=== PATIENT | male | born 1950 | race Caucasian/White ===

== ENCOUNTER 2019-12-29 11:26 | Emergency (ER) | payer MEDICARE, OTHER ==
[2019-12-29 11:39] VITALS: O2SAT 97
--- NOTE | 2019-12-29 11:50 | ERPHSYRPT ---
- History of Present Illness Time Seen by Provider: 12/29/19 11:50 Source: patient, family Exam Limitations: no limitations Patient Subjective Stated Complaint: pt here via ambulance for dizziness, states he had a sudden onset, feels like he is off balance,dnies any other cosk, was seen by last week and told to drink more water which he has Triage Nursing Assessment: pt alert, resp easy, skin w/d/p.moves all ext well, mucas membranes moist, eat breakfast this am. Physician History: This is a 69-year-old white male patient with a history of hypertension who presents with intermittent dizziness. This is occurred throughout the past week. Patient went to see Dr. Silverman his primary care physician. There is be en no changes in his medications recently. He denies head injury. Patient denies visual changes and he denies headaches. Patient does not have chest pain he is not short of breath. He has no abdominal pain. Patient took his blood pressure medications this morning approximately 4 hours prior to arrival. He has an elevated systolic blood pressure over 180. Patient's blood sugar on arrival was 68. Timing/Duration: week(s) (During this past week), intermittent Severity: mild Deficits: no difficulties Baseline/Normal Cognition: alert oriented x 3 Current Cognition: alert oriented x 3 Baseline Gait: walks w/o assistance Associated Symptoms: denies symptoms Allergies/Adverse Reactions: tetracycline [Tetracycline] Allergy (Mild, Verified 12/29/19 11:39) oxytetracycline [From Terramycin] Allergy (Verified 12/29/19 11:39) oxytetracycline HCl [From Terramycin] Allergy (Verified 12/29/19 11:39) Home Medications: Gabapentin 400 mg [Neurontin 400 MG] 400 mg PO TID 08/29/14 [History] Nebivolol HCl [Bystolic] 5 mg PO DAILY 08/29/14 [History] Tamsulosin HCl 0.4 mg [Flomax 0.4 MG] 1 tab PO DAILY 08/29/14 [History] Aspirin 81 gm Chew [Baby Aspirin 81 mg Chew] 1 ea DAILY 12/29/19 [History] Hx Tetanus, Diphtheria Vaccination/Date Given: Yes (UNSURE) Hx Influenza Vaccination/Date Given: Yes Hx Pneumococcal Vaccination/Date Given: Yes Immunizations Up to Date: Yes Travel Risk - International Travel Have you traveled outside of the country in past 3 weeks: No - Coronavirus Screening Are you exhibiting any of the following symptoms?: No Close contact with a COVID-19 positive Pt in past 14-21 Days: No - Review of Systems Constitutional: No Symptoms Eyes: No Symptoms Ears, Nose, & Throat: No Symptoms Respiratory: No Symptoms Cardiac: No Symptoms Abdominal/Gastrointestinal: No Symptoms Genitourinary Symptoms: No Symptoms Musculoskeletal: No Symptoms Skin: No Symptoms Neurological: Dizziness Psychological: No Symptoms Endocrine: No Symptoms Hematologic/Lymphatic: No Symptoms Immunological/Allergic: No Symptoms All Other Systems: Reviewed and Negative - Past Medical History Pertinent Past Medical History: Yes Neurological History: No Pertinent History ENT History: No Pertinent History Cardiac History: Hypertension, Other Respiratory History: No Pertinent History Endocrine Medical History: No Pertinent History Musculoskeletal History: Arthritis GI Medical History: Hernia History: No Pertinent History Psycho-Social History: No Pertinent History Male Reproductive Disorders: Prostate Problems Other Medical History: nerve pain to shoulder, - Past Surgical History Past Surgical History: Yes Neuro Surgical History: No Pertinent History Cardiac: No Pertinent History Respiratory: No Pertinent History Gastrointestinal: Appendectomy, Hernia Repair Genitourinary: No Pertinent History Musculoskeletal: Orthopedic Surgery Other Surgical History: BACK,NECK - Social History Smoking Status: Never smoker Exposure to second hand smoke: No Drug Use: none Patient Lives Alone: No - Nursing Vital Signs Nursing Vital Signs: Initial Vital Signs Temperature 98.0 F 12/29/19 11:31 Pulse Rate 61 12/29/19 11:31 Respiratory Rate 16 12/29/19 11:31 Blood Pressure 184/93 12/29/19 11:31 O2 Sat by Pulse Oximetry 97 12/29/19 11:31 Pain Scale Pain Intensity 0 - [place] Coma Scale Best Eye Response ([place]): (4) open spontaneously Best Verbal Response ([place]): (5) oriented Best Motor Response ([place]): (6) obeys commands [place] Total: 15 - Physical Exam General Appearance: no apparent distress, alert, anxiety Eye Exam: bilateral eye: normal inspection, PERRL, EOMI Ears, Nose, Throat Exam: normal ENT inspection, moist mucous membranes Neck Exam: normal inspection, non-tender, supple, full range of motion Respiratory: normal breath sounds, lungs clear, airway intact, No chest t enderness, No respiratory distress Cardiovascular: regular rate/rhythm, normal heart sounds, normal peripheral pulses Gastrointestinal: soft, normal bowel sounds, No tenderness Rectal Exam: not done Back Exam: normal inspection, normal range of motion, No CVA tenderness, No vertebral tenderness Extremity Exam: normal inspection, normal range of motion, pelvis stable Mental Status: alert, oriented x 3, 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 Exam: normal hearing, normal speech, PERRL Coordination/Gait: normal finger to nose, normal gait, normal cerebellar function Motor/Sensory: no motor deficit, no sensory deficit, no pronator drift Skin Exam: normal color, warm, dry SpO2 Interpretation: normal SpO2: 97 O2 Delivery: Room Air - Course Nursing assessment & vital signs reviewed: Yes EKG Interpreted by Me: RATE (59), Sinus Rhythm, Left [place] Deviation, NORMAL INTERVALS, NORMAL QRS, Non-specific ST Changes, Other (There is prolonged OR interval and probable left atrial enlargement both of these were present on the prior EKG in December 2017. There is new finding of nonspecific T abnormalities in the inferior leads on the current EKG. There are no acute ischemic changes on today's EKG.) Ordered Tests: Active Orders 24 hr Category Date Time Status EKG-ER Only STAT Care 12/29/19 11:51 Active IV Insertion STAT Care 12/29/19 11:51 Active HEAD WITHOUT CONTRAST [CT] Stat Exams 12/29/19 12:13 Taken CBC W DIFF Stat Lab 12/29/19 11:51 Completed CMP Stat Lab 12/29/19 11:30 Completed MAGNESIUM Stat Lab 12/29/19 11:30 Completed TROPONIN Q3H Lab 12/29/19 11:30 Completed TROPONIN Q3H Lab 12/29/19 15:15 Ordered TROPONIN Q3H Lab 12/29/19 18:15 Ordered TROPONIN Q3H Lab 12/29/19 21:15 Ordered UA W/RFX UR CULTURE Stat Lab 12/29/19 11:30 Completed Medication Summary Discontinued Medications Generic Name Dose Route Start Last Admin Trade Name Freq PRN Reason Stop Dose Admin Enalaprilat 1.25 mg 12/29/19 12:09 12/29/19 12:12 Vasotec I.V. 2.5 Mg IV 12/29/19 12:10 1.25 mg STAT ONE Administration Enalaprilat Confirm 12/29/19 12:11 Vasotec I.V. 2.5 Mg Administered 12/29/19 12:12 Dose 2.5 mg IV .STK-MED ONE Sodium Chloride 1,000 mls @ 999 mls/hr 12/29/19 11:51 12/29/19 13:17 Sodium Chloride 0.9% 1000 Ml IV 12/29/19 12:51 Infused .Q1H1M STA Infusion Sodium Chloride Confirm 12/29/19 12:02 Sodium Chloride 0.9% 1000 Ml Administered 12/29/19 12:03 Dose 1,000 mls @ ud .ROUTE .STK-MED ONE Metoprolol Tartrate 5 mg 12/29/19 11:53 12/29/19 12:07 Lopressor 5 Mg/5 Ml Injection IV 12/29/19 11:54 Not Given STAT ONE Metoprolol Tartrate Confirm 12/29/19 12:02 Lopressor 5 Mg/5 Ml Injection Administered 12/29/19 12:03 Dose 5 mg IV .STK-MED ONE Lab/Rad Data: Laboratory Result Diagrams 12/29/19 11:51 12/29/19 11:30 Laboratory Results 12/29/19 12/29/19 12/29/19 Range/Units 11:51 11:30 11:30 WBC 6.5 (4.0-10.5) K/mm3 RBC 4.27 (4.1-5.6) M/mm3 Hgb 15.5 (12.5-18.0) gm/dl Hct 44.3 (42-50) % MCV 103.7 H (78-100) fl MCH 36.3 H (26-32) pg MCHC 35.0 (32-36) g/dl RDW 12.9 (11.5-14.0) % Plt Count 120 L (150-450) K/mm3 MPV 10.5 (7.5-11.0) fl Gran % 55.2 (36.0-66.0) % Eos # (Auto) 0.31 (0-0.5) Absolute Lymphs (auto) 1.18 (1.0-4.6) Absolute Monos (auto) 1.36 H (0.0-1.3) Lymphocytes % 18.3 L (24.0-44.0) % Monocytes % 21.1 H (0.0-12.0) % Eosinophils % 4.8 (0.00-5.0) % Basophils % 0.6 (0.0-0.4) % Absolute Granulocytes 3.56 (1.4-6.9) Basophils # 0.04 (0-0.4) Sodium 132 L (137-145) mmol/L Potassium 3.5 (3.5-5.1) mmol/L Chloride 100 (98-107) mmol/L Carbon Dioxide 27 (22-30) mmol/L Anion Gap 9.6 (5-15) MEQ/L BUN 8 L (9-20) mg/dL Creatinine 0.58 L (0.66-1.25) mg/dL Estimated GFR > 60.0 ML/MIN Glucose 64 L (74-106) mg/dL Calcium 9.3 (8.4-10.2) mg/dL Magnesium 1.9 (1.6-2.3) mg/dL Total Bilirubin 3.40 H (0.2-1.3) mg/dL AST 61 H (17-59) U/L ALT 30 (0-50) U/L Alkaline Phosphatase 92 (38-126) U/L Troponin I < 0.012 (0.000-0.034) ng/mL Serum Total Protein 7.1 (6.3-8.2) g/dL Albumin 3.6 (3.5-5.0) g/dL Urine Color (YELLOW) Urine Appearance (CLEAR) Urine pH (5-6) Ur Specific [place] (1.005-1.025) Urine Protein (Negative) Urine Ketones (NEGATIVE) Urine Blood (0-5) Terrance/ul Urine Nitrite (NEGATIVE) Urine Bilirubin (NEGATIVE) Urine Urobilinogen (0-1) mg/dL Ur Leukocyte Esterase (NEGATIVE) Urine WBC (Auto) (0-5) /HPF Urine RBC (Auto) (0-2) /HPF U Epithel Cells (Auto) (FEW) /HPF Urine Bacteria (Auto) (NEGATIVE) /HPF Urine Mucus (Auto) (NEGATIVE) /HPF Urine Culture Reflexed (NO) Urine Glucose (NEGATIVE) mg/dL 12/29/19 Range/Units 11:30 WBC (4.0-10.5) K/mm3 RBC (4.1-5.6) M/mm3 Hgb (12.5-18.0) gm/dl Hct (42-50) % MCV (78-100) fl MCH (26-32) pg MCHC (32-36) g/dl RDW (11.5-14.0) % Plt Count (150-450) K/mm3 MPV (7.5-11.0) fl Gran % (36.0-66.0) % Eos # (Auto) (0-0.5) Absolute Lymphs (auto) (1.0-4.6) Absolute Monos (auto) (0.0-1.3) Lymphocytes % (24.0-44.0) % Monocytes % (0.0-12.0) % Eosinophils % (0.00-5.0) % Basophils % (0.0-0.4) % Absolute Granulocytes (1.4-6.9) Basophils # (0-0.4) Sodium (137-145) mmol/L Potassium (3.5-5.1) mmol/L Chloride (98-107) mmol/L Carbon Dioxide (22-30) mmol/L Anion Gap (5-15) MEQ/L BUN (9-20) mg/dL Creatinine (0.66-1.25) mg/dL Estimated GFR ML/MIN Glucose (74-106) mg/dL Calcium (8.4-10.2) mg/dL Magnesium (1.6-2.3) mg/dL Total Bilirubin (0.2-1.3) mg/dL AST (17-59) U/L ALT (0-50) U/L Alkaline Phosphatase (38-126) U/L Troponin I (0.000-0.034) ng/mL Serum Total Protein (6.3-8.2) g/dL Albumin (3.5-5.0) g/dL Urine Color YELLOW (YELLOW) Urine Appearance CLEAR (CLEAR) Urine pH 6.0 (5-6) Ur Specific [place] 1.013 (1.005-1.025) Urine Protein NEGATIVE (Negative) Urine Ketones NEGATIVE (NEGATIVE) Urine Blood NEGATIVE (0-5) Terrance/ul Urine Nitrite NEGATIVE (NEGATIVE) Urine Bilirubin NEGATIVE (NEGATIVE) Urine Urobilinogen 2 (0-1) mg/dL Ur Leukocyte Esterase NEGATIVE (NEGATIVE) Urine WBC (Auto) NONE (0-5) /HPF Urine RBC (Auto) NONE (0-2) /HPF U Epithel Cells (Auto) NONE (FEW) /HPF Urine Bacteria (Auto) NONE (NEGATIVE) /HPF Urine Mucus (Auto) SLIGHT (NEGATIVE) /HPF Urine Culture Reflexed NO (NO) Urine Glucose 50 (NEGATIVE) mg/dL - Progress Progress: improved, re-examined Progress Note: 12/29/19 12:44 CAT scan of the head reveals no acute intracranial abnormality. 12/29/19 13:19 Medical decision making: This patient presented with dizziness. His blood pressure was elevated. He has a normal CAT scan his blood pressure is now in a reasonable range. Patient states he has no symptoms of dizziness at all at this time. He does not want to be admitted or transferred. We will place him on a Holter monitor and discharge him to home with instructions to continue his medi cation as prescribed. He is also to follow-up with his primary care physician. Counseled pt/family regarding: lab results, diagnosis, need for follow-up, rad results - Departure Departure Disposition: Home Clinical Impression: Dizziness, Hypertensive urgency Condition: Stable Critical Care Time: Yes Critical Care Time(excluding separately billable procedures): Critical 30-74 mins Referrals: MARCELO SILVERMAN MD [Primary Care Provider] - Additional Instructions: Take your medication as prescribed. Follow-up with your primary care physician tomorrow morning by phone to schedule a follow-up appointment. Return the Holter monitor unit as instructed.
[2019-12-29] MEDS ORDERED: Sodium Chloride 0.9% 1000 ML 1,000 ML IV STA (11:51)
[2019-12-29] MEDS ORDERED: Sodium Chloride 0.9% 1000 ML 1,000 ML ONE (12:02)
[2019-12-29] MEDS ORDERED: LOPRESSOR 5 MG/5 ML INJECTION IV ONE (12:02)
[2019-12-29] MEDS: LOPRESSOR 5 MG/5 ML INJECTION IV ONE ×2 (12:05→12:07)
[2019-12-29] MEDS ORDERED: VASOTEC I.V. 2.5 MG IV ONE ×3 (12:09→13:43)
[2019-12-29 12:36] LABS: Absolute Neutrophil Ct (ANC) 3.56 (1.4-6.9); BASOPHIL % 0.6 % (0.0-0.4); Basophil (Absolute #) 0.04 (0-0.4); Eosinophil % 4.8 % (0.00-5.0); Eosinophil (Absolute #) 0.31 (0-0.5); Hematocrit 44.3 % (42-50); Hemoglobin 15.5 gm/dl (12.5-18.0); Lymphocyte (Absolute #) 1.18 (1.0-4.6); Lymphocytes % 18.3 % (24.0-44.0); Mean Cell Volume 103.7 fl (78-100); Mean Corpuscular Hemoglobin 36.3 pg (26-32); Mean Platelet Volume 10.5 fl (7.5-11.0); Monocyte (Absolute #) 1.36 (0.0-1.3); Monocytes % 21.1 % (0.0-12.0); Neutrophil % 55.2 % (36.0-66.0); Platelet Count 120 K/mm3 (150-450); Red Blood Count 4.27 M/mm3 (4.1-5.6); Red Cell Distribution Width 12.9 % (11.5-14.0); White Blood Count 6.5 K/mm3 (4.0-10.5)
[2019-12-29 12:40] LABS: Appearance CLEAR (CLEAR); Bilirubin NEGATIVE (NEGATIVE); Blood NEGATIVE Ery/ul (0-5); Glucose 50 mg/dL (NEGATIVE); Ketones NEGATIVE (NEGATIVE); Leukocyte Esterase NEGATIVE (NEGATIVE); Mucus SLIGHT /HPF (NEGATIVE); Nitrite NEGATIVE (NEGATIVE); Protein,Urine Dip NEGATIVE (Negative); Specific Gravity 1.013 (1.005-1.025); Urobilinogen 2 mg/dL (0-1)
[2019-12-29 13:01] LABS: ALBUMIN 3.6 g/dL (3.5-5.0); ALKALINE PHOSPHATASE 92 U/L (38-126); ANION GAP 9.6 MEQ/L (5-15); BLOOD UREA NITROGEN 8 mg/dL (9-20); CHLORIDE 100 mmol/L (98-107); Calcium 9.3 mg/dL (8.4-10.2); Carbon Dioxide 27 mmol/L (22-30); Creatinine 1 0.58 mg/dL (0.66-1.25); Glucose 64 mg/dL (74-106); MAGNESIUM 1.9 mg/dL (1.6-2.3); Potassium 3.5 mmol/L (3.5-5.1); SGOT/AST 61 U/L (17-59); SGPT/ALT 30 U/L (0-50); SODIUM 132 mmol/L (137-145); Total Protein 7.1 g/dL (6.3-8.2)
[2019-12-29] MEDS: VASOTEC I.V. 2.5 MG IV ONE ×2 (13:47→13:51)
[2019-12-29 13:51] VITALS: BP 154/86
[2019-12-29 13:55] VITALS: PULSE 70
--- NOTE | 2019-12-29 20:02 | XRAY ---
Indication: Dizziness. High blood pressure. Multiple contiguous axial images obtained through the head without contrast. Comparison: September 23, 2014. Again normal appearing brain parenchyma, ventricles, and bony calvarium for patient's age. Visualized paranasal sinuses and mastoid air cells are clear. Impression: Continued normal CT head without contrast exam. Comment: Preliminary interpretation was made by [facility]. No critical discrepancy.
--- NOTE | 2020-01-01 11:43 | HOLTER ---
DATE OF PROCEDURE: 12/29/2019 PROCEDURE: Holter monitor report. REASON FOR EXAMINATION: Dizziness. DESCRIPTION OF PROCEDURE: The patient was monitored using Holter monitor for about 24 hours. The patient was in sinus rhythm throughout the recording with average rate of 64 beats/minute. The maximum rate was 88 beats/minute at 0909 hours and the minimum rate was 52 beats/minute at 0534 hours. There were occasional premature ventricular ectopies noted. No evidence of any ventricular tachyarrhythmia. There were premature atrial ectopies with two episodes of short atrial runs consisting of 4 beats. No evidence of any long pauses or no blocks noted. IMPRESSION: 1) SINUS RHYTHM WITH SUGGESTION OF CHRONOTROPIC INCOMPETENCE. 2) OCCASIONAL PVC'S. 3) OCCASIONAL PAC'S WITH TWO EPISODES OF SHORT ATRIAL RUNS OF 4 BEATS.
== END 2019-12-29 14:10 | disposition home or self-care (01) ==
LOC: ED 11:26
DX: R42 Dizziness and giddiness (principal); I16.0 Hypertensive urgency; Z79.899 Other long term (current) drug therapy
CPT/HCPCS: 36000; 36415; 70450; 80053; 81001; 82962; 83735; 84484; 85025; 93005; 93225; 96360; 96374; 99285; 99291

== ENCOUNTER 2021-01-27 20:10 | Emergency (ER) | payer MEDICARE, OTHER ==
[2021-01-27 20:49] LABS: Absolute Neutrophil Ct (ANC) 2.44 (1.4-6.9); BASOPHIL % 0.5 % (0.0-0.4); Basophil (Absolute #) 0.03 (0-0.4); Eosinophil % 11.6 % (0.00-5.0); Eosinophil (Absolute #) 0.71 (0-0.5); Hematocrit 37.2 % (42-50); Hemoglobin 12.9 gm/dl (12.5-18.0); Lymphocyte (Absolute #) 1.77 (1.0-4.6); Mean Cell Volume 103.6 fl (78-100); Mean Corpuscular Hemoglobin 35.9 pg (26-32); Mean Corpuscular Hgb Concent. 34.7 g/dl (32-36); Mean Platelet Volume 9.9 fl (7.5-11.0); Monocyte (Absolute #) 1.15 (0.0-1.3); Monocytes % 18.9 % (0.0-12.0); Platelet Count 117 K/mm3 (150-450); Red Blood Count 3.59 M/mm3 (4.1-5.6); Red Cell Distribution Width 12.7 % (11.5-14.0); White Blood Count 6.1 K/mm3 (4.0-10.5)
--- NOTE | 2021-01-27 21:10 | ERPHSYRPT ---
- History of Present Illness Time Seen by Provider: 01/27/21 20:15 Historian: patient Exam Limitations: no limitations Patient Subjective Stated Complaint: pt c/o dizziness Triage Nursing Assessment: pt c/o dizziness around 1900 today. Pt states, "I drank 6 beers today with friends but that has nothing to do with this". Pt has a slight headache and got a little nauseaous on his way over to the hospital in the car. Pt denies any pain or nausea at this time. Physician History: Patient is a 70-year-old male presents to emergency department for evaluation of dizziness. Dizziness started approximately 7 PM. Dizziness is associated with a mild headache and nausea. Patient states he took a 0.4 mg nitroglycerin sub lingual at 930 due to his symptoms. Upon his arrival to our ED patient experienced a mild headache and nausea. Upon arrival to our ED nausea resolved. Patient states that he was drinking beers with his friends prior to the onset of the symptoms. No active chest pain. No diaphoresis. No trauma. No fever. Symptoms are mild in intensity. No specific worsening improving factors. Patient voices no other complaints concerns at this time. Timing/Duration: today Activities at Onset: other (Patient had been drinking beers with his friend brigette r to onset of symptoms.) Severity of Pain-Max: moderate Severity of Pain-Current: mild Modifying Factors: Improves With: nothing Associated Symptoms: nausea, No vomiting, No shortness of breath Prior Chest Pain/Cardiac Workup: no prior chest pain Nitro Today/Relief: 0.4 mg x 1 Aspirin Treatment Today: no aspirin today Allergies/Adverse Reactions: oxytetracycline [From Terramycin] Allergy (Mild, Verified 01/27/21 20:24) Rash oxytetracycline HCl [From Terramycin] Allergy (Mild, Verified 01/27/21 20:24) Rash tetracycline [Tetracycline] Allergy (Mild, Verified 01/27/21 20:24) Rash Home Medications: Gabapentin 400 mg [Neurontin 400 MG] 400 mg PO TID 08/29/14 [History] Tamsulosin HCl 0.4 mg [Flomax 0.4 MG] 1 tab PO DAILY 08/29/14 [History] Aspirin 81 gm Chew [Baby Aspirin 81 mg Chew] 1 ea PO DAILY 06/28/20 [History] Carvedilol [Coreg] 6.25 mg PO BID 01/27/21 [History] Sildenafil Citrate 100 mg PO DAILY PRN PRN 01/27/21 [History] Solifenacin Succinate [Vesicare] 5 mg PO DAILY 01/27/21 [History] Spironolactone 25 mg PO DAILY 01/27/21 [History] Torsemide 20 mg [Demadex 20 mg] 20 mg PO DAILY 01/27/21 [History] Hx Tetanus, Diphtheria Vaccination/Date Given: Yes Hx Influenza Vaccination/Date Given: Yes Hx Pneumococcal Vaccination/Date Given: Yes Immunizations Up to Date: Yes Travel Risk - International Travel Have you traveled outside of the country in past 3 weeks: No - Coronavirus Screening Are you exhibiting any of the following symptoms?: No Close contact with a COVID-19 positive Pt in past 14-21 Days: No - Vaccine Status Have you recieved a Covid-19 vaccination: Yes [employer] - Vaccination Dates Date of 2cond Vaccination (if applicable): 09/09/20 - Past Medical History Pertinent Past Medical History: Yes Neurological History: No Pertinent History ENT History: No Pertinent History Cardiac History: Angina, Hypertension, Other Respiratory History: No Pertinent History Endocrine Medical History: No Pertinent History Musculoskeletal History: Arthritis GI Medical History: GERD, Hernia History: No Pertinent History Psycho-Social History: No Pertinent History Male Reproductive Disorders: Prostate Problems Other Medical History: nerve pain to shoulder - Past Surgical History Past Surgical History: Yes Neuro Surgical History: No Pertinent History Cardiac: No Pertinent History Respiratory: No Pertinent History Gastrointestinal: Appendectomy, Hernia Repair Genitourinary: No Pertinent History Musculoskeletal: Orthopedic Surgery Male Surgical History: No Pertinent History Other Surgical History: BACK,NECK - Social History Smoking Status: Never smoker Exposure to second hand smoke: Yes Drug Use: none Patient Lives Alone: No - Nursing Vital Signs Nursing Vital Signs: Initial Vital Signs Temperature 97.1 F 01/27/21 20:12 Pulse Rate 60 01/27/21 20:12 Respiratory Rate 20 01/27/21 20:12 Blood Pressure 120/70 01/27/21 20:12 O2 Sat by Pulse Oximetry 100 01/27/21 20:12 Pain Scale Pain Intensity 0 - Physical Exam General Appearance: no apparent distress, alert, other (Patient smells of alcohol ) Eye Exam: PERRL/EOMI, eyes nml inspection Ears, Nose, Throat Exam: normal ENT inspection, moist mucous membranes Neck Exam: normal inspection, non-tender, supple, full range of motion Respiratory Exam: normal breath sounds, lungs clear, No respiratory distress Cardiovascular Exam: regular rate/rhythm, normal heart sounds Gastrointestinal/Abdomen Exam: soft, No tenderness, No mass Back Exam: normal inspection, No CVA tenderness, No vertebral tenderness Extremity Exam: normal inspection, normal range of motion, other (1+ pitting edema bilateral lower extremity.) Neurologic Exam: alert, oriented x 3, cooperative, normal mood/affect, sensation nml, No motor deficits, No sensory deficit, No disoriented, No confusion, No agitation, No uncooperative, No facial droop, No slurred speech, No aphasia, No dysarthria, No abnormal gait, No abnormal cerebellar tests Skin Exam: normal color, warm, dry SpO2 Interpretation: normal SpO2: 98 O2 Delivery: Room Air - Course Nursing assessment & vital signs reviewed: Yes EKG Interpreted by Me: RATE (60), Sinus Rhythm, NORMAL AXIS, prolonged QT interval - Radiology Exams Chest X-ray Interpretation: Teleradiologist Report (Bilateral apical scarring. Patchy groundglass pulmonary opacities. Bibasilar atelectasis. No pleural effusion cardiomegaly enlarged pulmonary arteries likely represents chronic pulmonary arterial hypertension. Vascular calcifications.) - CT Exams Head CT Interpretation: Tele-radiologist Report (Mild chronic brain volume loss and chronic small vessel ischemic changes. No ventriculomegaly. Mild mucosal thickening in the paranasal sinuses. Visualized mastoid air cells are well aerated. No acute intracranial findings.) Ordered Tests: Active Orders 24 hr Category Date Time Status Tax Accounting Assistant STAT Care 01/27/21 20:30 Active EKG-ER Only STAT Care 01/27/21 20:29 Active IV Insertion STAT Care 01/27/21 20:29 Active Pulse Oximetry (ED) STAT Care 01/27/21 20:29 Active CHEST 1 VIEW (PORTABLE) Stat Exams 01/27/21 20:30 Taken HEAD WITHOUT CONTRAST [CT] Stat Exams 01/28/21 00:17 Taken CBC W DIFF Stat Lab 01/27/21 20:45 Completed CMP Stat Lab 01/27/21 20:45 Completed ETHYL ALCOHOL Stat Lab 01/28/21 00:01 Completed NT PRO BNP Stat Lab 01/27/21 20:45 Completed TROPONIN Q3H Lab 01/27/21 20:45 Completed TROPONIN Q3H Lab 01/27/21 23:37 Completed TROPONIN Q3H Lab 01/28/21 02:30 Ordered TROPONIN Q3H Lab 01/28/21 05:30 Ordered TROPONIN Q3H Lab 01/28/21 08:30 Ordered Medication Summary Generic Name Dose Route Start Last Admin Trade Name Freq PRN Reason Stop Dose Admin Sodium Chloride 1,000 mls @ 999 mls/hr 01/28/21 01:39 01/28/21 01:43 Sodium Chloride 0.9% 1000 Ml IV 01/28/21 02:39 999 mls/hr .Q1H1M STA Administration Discontinued Medications Generic Name Dose Route Start Last Admin Trade Name Freq PRN Reason Stop Dose Admin Sodium Chloride Confirm 01/28/21 01:41 Sodium Chloride 0.9% 1000 Ml Administered 01/28/21 01:42 Dose 1,000 mls @ ud .ROUTE .STK-MED ONE Lab/Rad Data: Laboratory Result Diagrams 01/27/21 20:45 01/27/21 20:45 Laboratory Results 01/28/21 01/27/21 01/27/21 Range/Units 00:01 23:37 20:45 WBC (4.0-10.5) K/mm3 RBC (4.1-5.6) M/mm3 Hgb (12.5-18.0) gm/dl Hct (42-50) % MCV (78-100) fl MCH (26-32) pg MCHC (32-36) g/dl RDW (11.5-14.0) % Plt Count (150-450) K/mm3 MPV (7.5-11.0) fl Gran % (36.0-66.0) % Eos # (Auto) (0-0.5) Absolute Lymphs (auto) (1.0-4.6) Absolute Monos (auto) (0.0-1.3) Lymphocytes % (24.0-44.0) % Monocytes % (0.0-12.0) % Eosinophils % (0.00-5.0) % Basophils % (0.0-0.4) % Absolute Granulocytes (1.4-6.9) Basophils # (0-0.4) Sodium (137-145) mmol/L Potassium (3.5-5.1) mmol/L Chloride (98-107) mmol/L Carbon Dioxide (22-30) mmol/L Anion Gap (5-15) MEQ/L BUN (9-20) mg/dL Creatinine (0.66-1.25) mg/dL Estimated GFR ML/MIN Glucose (74-106) mg/dL Calcium (8.4-10.2) mg/dL Total Bilirubin (0.2-1.3) mg/dL AST (17-59) U/L ALT (0-50) U/L Alkaline Phosphatase (38-126) U/L Troponin I < 0.012 < 0.012 (0.000-0.034) ng/mL NT-Pro-B Natriuret Pep (0-900) pg/mL Serum Total Protein (6.3-8.2) g/dL Albumin (3.5-5.0) g/dL Ethyl Alcohol 85 H (0-10) mg/dL 01/27/21 01/27/21 Range/Units 20:45 20:45 WBC 6.1 (4.0-10.5) K/mm3 RBC 3.59 L (4.1-5.6) M/mm3 Hgb 12.9 (12.5-18.0) gm/dl Hct 37.2 L (42-50) % MCV 103.6 H (78-100) fl MCH 35.9 H (26-32) pg MCHC 34.7 (32-36) g/dl RDW 12.7 (11.5-14.0) % Plt Count 117 L (150-450) K/mm3 MPV 9.9 (7.5-11.0) fl Gran % 40.0 (36.0-66.0) % Eos # (Auto) 0.71 H (0-0.5) Absolute Lymphs (auto) 1.77 (1.0-4.6) Absolute Monos (auto) 1.15 (0.0-1.3) Lymphocytes % 29.0 (24.0-44.0) % Monocytes % 18.9 H (0.0-12.0) % Eosinophils % 11.6 H (0.00-5.0) % Basophils % 0.5 (0.0-0.4) % Absolute Granulocytes 2.44 (1.4-6.9) Basophils # 0.03 (0-0.4) Sodium 129 L (137-145) mmol/L Potassium 3.5 (3.5-5.1) mmol/L Chloride 94 L (98-107) mmol/L Carbon Dioxide 23 (22-30) mmol/L Anion Gap 14.9 (5-15) MEQ/L BUN 9 (9-20) mg/dL Creatinine 0.89 (0.66-1.25) mg/dL Estimated GFR > 60.0 ML/MIN Glucose 123 H (74-106) mg/dL Calcium 8.7 (8.4-10.2) mg/dL Total Bilirubin 3.10 H (0.2-1.3) mg/dL AST 56 (17-59) U/L ALT 24 (0-50) U/L Alkaline Phosphatase 63 (38-126) U/L Troponin I (0.000-0.034) ng/mL NT-Pro-B Natriuret Pep 105 (0-900) pg/mL Serum Total Protein 6.5 (6.3-8.2) g/dL Albumin 3.3 L (3.5-5.0) g/dL Ethyl Alcohol (0-10) mg/dL - Progress Progress: improved Air Movement: good Progress Note: Patient reassessed. Dizziness resolved. Repeat neuro exam within normal limits. Laboratory work-up reveals a hyponatremia. Patient will receive a liter of IV fluids. Troponin negative x2. Alcohol level 85. CT head negative for acute intracranial pathology. Patient has a history of thoracic aortic aneurysm. Chest x-ray does not show any enlargement of the aneurysm. However there are findings concerning for possible atypical pneumonia. Patient will be tested for COVID-19. Case discussed with Dr. Barron who feels that patient is appropriate for discharge. Patient symptomology likely due to alcohol intoxication. 01/28/21 01:42 01/28/21 01:55 Blood Culture(s) Obtained: No Antibiotics given: No Discussed with : Noelle Will see patient in: office Counseled pt/family regarding: lab results, diagnosis, need for follow-up, rad results - Departure Departure Disposition: Home Clinical Impression: Dizziness, Cardiomegaly, Chronic pulmonary hypertension Condition: Stable Critical Care Time: No Referrals: MARCELO SILVERMAN MD [Primary Care Provider] - Additional Instructions: Discharge/Care Plan SHAYNA RANDALL was seen on 01/28/21 in the Emergency Room. The patient was counseled regarding Diagnosis,Lab results, Imaging studies, need for follow up and when to return to the Emergency Room. Prescriptions given: Discharge Note I have spoken with the patient and/or caregivers. I have explained the patient's condition, diagnosis and treatment plan based on the information available to me at this time. I have answered the patient's and/or caregiver's questions and addressed any concerns. The patient and/or caregivers have as good understanding of the patient's diagnosis, condition and treatment plan as can be expected at this point. The vital signs have been stable. The patient's condition is stable and appropriate for discharge from the emergency department. The patient will pursue further outpatient evaluation with the primary care physician or other designated or consulting physician as outlined in the discharge instructions. The patient and/or caregivers are agreeable to this plan of care and follow-up instructions have been explained in detail. The patient and/or caregivers have received these instruction. The patient/and or caregivers are aware that any significant change in condition or worsening of symptoms should prompt an immediate return to this or the closest emergency department or call 911.
[2021-01-27 21:11] LABS: ALBUMIN 3.3 g/dL (3.5-5.0); ALKALINE PHOSPHATASE 63 U/L (38-126); ANION GAP 14.9 MEQ/L (5-15); BLOOD UREA NITROGEN 9 mg/dL (9-20); CHLORIDE 94 mmol/L (98-107); Calcium 8.7 mg/dL (8.4-10.2); Carbon Dioxide 23 mmol/L (22-30); Creatinine 1 0.89 mg/dL (0.66-1.25); EST GLOMERULAR FILTRATION RATE > 60.0 ML/MIN; Glucose 123 mg/dL (74-106); NT PRO BNP 105 pg/mL (0-900); Potassium 3.5 mmol/L (3.5-5.1); SGOT/AST 56 U/L (17-59); SGPT/ALT 24 U/L (0-50); SODIUM 129 mmol/L (137-145); Total Protein 6.5 g/dL (6.3-8.2)
[2021-01-27 23:26] VITALS: O2SAT 98
[2021-01-28] MEDS ORDERED: Sodium Chloride 0.9% 1000 ML 1,000 ML IV STA (01:39)
[2021-01-28] MEDS ORDERED: Sodium Chloride 0.9% 1000 ML 1,000 ML ONE (01:41)
[2021-01-28 02:13] VITALS: BP 146/86; PULSE 63
--- NOTE | 2021-01-28 08:51 | XRAY ---
Indication: Dizziness. Worsen: September 23, 2014. Portable chest demonstrates new subtle interstitial alveolar opacities within the mid to lower lung beatty bilaterally without consolidation/large effusion. Heart not enlarged. Bony thorax intact again with mild degenerative changes. Comment: Preliminary interpretation made by C. No critical discrepancy.
--- NOTE | 2021-01-28 08:51 | XRAY ---
Indication: Dizziness. No known injury. Multiple contiguous axial images obtained through the head without contrast. Comparison: December 29, 2019. Normal appearing brain parenchyma, ventricles, and bony calvarium for patient's age. Visualized paranasal sinuses and mastoid air cells are clear. Impression: Continued normal CT head without contrast exam. Comment: Preliminary interpretation made by [facility]. No critical discrepancy.
== END 2021-01-28 02:28 | disposition home or self-care (01) ==
LOC: ED 20:10
DX: R42 Dizziness and giddiness (principal); I51.7 Cardiomegaly; I27.20 Pulmonary hypertension, unspecified; Z79.899 Other long term (current) drug therapy; I10 Essential (primary) hypertension
CPT/HCPCS: 36000; 36415; 70450; 71045; 80053; 83880; 84484; 85025; 93005; 93041; 94760; 99284; G0480; U0003; 80307

== ENCOUNTER 2022-05-12 09:03 | Day surgery (SDC) | payer MEDICARE, OTHER ==
--- NOTE | 2022-04-26 10:30 | HP ---
DATE OF SURGERY: 04/28/2022 HISTORY OF PRESENT ILLNESS: The patient presents for five year follow up colonoscopy. The patient has a brother with rectal cancer. The patient denies GI signs or symptoms at this time. PAST MEDICAL HISTORY: Hypertension. Heart disease. Arthritis. PAST SURGICAL HISTORY: Appendectomy. Back surgery. Thumb surgery. Hernia surgery. ALLERGIES: TETRACYCLINE. TERRAMYCIN. MEDICATIONS: Gabapentin, Flomax, carvedilol, torsemide, solifenacin. FAMILY HISTORY: Colon cancer. SOCIAL HISTORY: Denies smoking. Occasional alcohol. REVIEW OF SYSTEMS: CONSTITUTIONAL: Denies fever or chills. CHEST: Denies shortness of breath. CVS: Denies chest pain. ABDOMEN: Denies abdominal pain. PHYSICAL EXAMINATION: GENERAL: No acute distress. CHEST: Nonlabored. No shortness of breath. CVS: Regular rate and rhythm. ABDOMEN: Soft. IMPRESSION: Family history of colon cancer and history of colon polyps. PLAN: Colonoscopy with Dr. Fernando Hastings. As dictated by Ana Deal NP.
--- NOTE | 2022-05-06 08:36 | HP ---
DATE OF SURGERY: 05/12/2022 HISTORY OF PRESENT ILLNESS: The patient presents for five year follow up colonoscopy. The patient's brother had colon cancer. The patient denies GI signs and symptoms at this time. PAST MEDICAL HISTORY: Hypertension. Heart disease. PAST SURGICAL HISTORY: Appendectomy. Back surgery. Cervical spine surgery. Hernia surgery. Colonoscopy. ALLERGIES: TETRACYCLINE. TERRAMYCIN. MEDICATIONS: Gabapentin, Flomax, carvedilol, torsemide, solifenacin succinate. FAMILY HISTORY: None reported. SOCIAL HISTORY: None reported. REVIEW OF SYSTEMS: CONSTITUTIONAL: Denies fever or chills. CHEST: Denies shortness of breath. CVS: Denies chest pain. ABDOMEN: Denies abdominal pain. PHYSICAL EXAMINATION: GENERAL: No acute distress. CHEST: Nonlabored. No shortness of breath. CVS: Regular rate and rhythm. ABDOMEN: Soft. IMPRESSION: History of colon polyps and family history of colon cancer. PLAN: Colonoscopy with Dr. Fernando Hastings. As dictated by Ana Deal NP.
[2022-05-12] MEDS ORDERED: Lactated Ringers 1,000 ML IV SCH (10:00)
[2022-05-12] MEDS ORDERED: Lactated Ringers 1,000 ML IV ONE (10:08)
[2022-05-12] MEDS ORDERED: DIPRIVAN 200 MG/20 ML IV ONE ×2 (11:30→11:40)
[2022-05-12] MEDS ORDERED: Versed 2 MG/2 ML Injection ONE (11:30)
--- NOTE | 2022-05-12 12:03 | OP ---
SURGERY DATE/TIME: 05/12/2022 1129 PREOPERATIVE DIAGNOSIS: History of polyps, family history of colon cancer. POSTOPERATIVE DIAGNOSES: 1) One small polyp 2 mm in sigmoid. 2) Prep score excellent. 3) Withdrawal time about six minutes. 4) Follow up five years. PROCEDURES: 1) Colonoscopy to cecum. 2) Hot polypectomy x1 mid sigmoid. SURGEON: Fernando Hastings M.D. ANESTHESIA: MAC. COMPLICATIONS: None. CONDITION: Stable. INDICATION: A patient presents for fiver year follow up of polyps. There is also a family history of colon cancer. DESCRIPTION OF PROCEDURE: Taken to endoscopy. Left lateral decubitus position. Anal digital examination satisfactory. Scope advanced up to cecum. Base of the cecum, ileocecal valve, appendiceal orifice were all normal ascending, hepatic, transverse, splenic, descending. In the mid sigmoid a 2 mm polyp was taken with hot biopsy forceps to extinction. Rectum, anus satisfactory. PLAN: Follow up five years.
--- NOTE | 2022-05-12 12:40 | XRAY ---
Indication: Bilateral wheezing. Status post colonoscopy. Aspiration. Comparison: January 27, 2021 Portable chest demonstrates new left base patchy consolidating/nonconsolidating airspace disease without large effusion. Remaining heart and lungs unremarkable. Bony thorax intact again with osteopenia and degenerative changes.
[2022-05-12 13:40] VITALS: BP 144/79; PULSE 63; O2SAT 95
[2022-05-12] MEDS ORDERED: Xopenex 1.25 MG/0.5 ML UD NEBULE IH ONE (13:52)
== END 2022-05-12 13:50 | disposition home or self-care (01) ==
LOC: SDC 09:03
PROVIDERS: ATTEND Surgery
DX: Z09 Encounter for follow-up examination after completed treatment for conditions other than malignant neoplasm (principal); Z80.0 Family history of malignant neoplasm of digestive organs; Z86.010 Personal history of colon polyps; K63.5 Polyp of colon; I10 Essential (primary) hypertension
CPT/HCPCS: 71045; 94640; 99100; J2250; J2704; A9270-GY

== ENCOUNTER 2023-02-22 13:37 | Day surgery (SDC) | payer MEDICARE, OTHER ==
[2012-07-06 14:26] VITALS: BP 146/76
[2023-02-22] MEDS ORDERED: LIDOCAINE HCL 2% 100 MG/5 ML IJ ONE (13:38)
[2023-02-22] MEDS ORDERED: Depo-Medrol 40 MG/ML IM ONE (13:38)
[2023-02-22] MEDS ORDERED: DIPRIVAN 200 MG/20 ML IV ONE (15:10)
[2023-02-22] MEDS ORDERED: Lactated Ringers 1,000 ML IV ONE (15:24)
--- NOTE | 2023-02-22 16:55 | XRAY ---
Indication: Bilateral L4-S1 MBB. Intraoperative fluoroscopy provided for 14 seconds. Single digital spot image submitted for interpretation demonstrates posterior needle tips projecting over the expected left and right L4-S1 nerve roots. Correlate with intraoperative findings/report.
--- NOTE | 2023-02-22 17:34 | XRAY ---
14 seconds of fluoroscopy was used in surgery for a bilateral L4-S1 MBB.
== END 2023-02-22 15:38 | disposition home or self-care (01) ==
LOC: SDC-PAIN 13:37
PROVIDERS: ATTEND Psychiatry & Neurology Pain Medicine
DX: M47.816 Spondylosis without myelopathy or radiculopathy, lumbar region (principal)
CPT/HCPCS: 64493; 64494; 72020; 77002; J1030; J2704